=== PATIENT | female | born 1970 | race African-American/Black ===

== ENCOUNTER → 2019-04-06 | Outpatient (CLI) | payer BC ==
[~2019-04-06] MED LIST: ALBUTEROL INH INH; CLARITIN-D 121 EACH PO
== END ==
LOC: CAT 10:05
DX: K76.89 Other specified diseases of liver (principal); K76.0 Fatty (change of) liver, not elsewhere classified; Z90.49 Acquired absence of other specified parts of digestive tract; Z90.710 Acquired absence of both cervix and uterus; Z85.3 Personal history of malignant neoplasm of breast; Z90.11 Acquired absence of right breast and nipple

== ENCOUNTER → 2021-03-10 | Outpatient (CLI) | payer BC | LOC: ULTRA 09:41 → CAT 09:41 | PROVIDERS: ATTEND Nurse Practitioner | DX: R05 Cough (principal); R53.83 Other fatigue; R06.02 Shortness of breath; M25.78 Osteophyte, vertebrae ==

== ENCOUNTER → 2021-03-13 | Outpatient (CLI) | payer BC | LOC: RAD 12:27 | PROVIDERS: ATTEND Pediatrics | DX: R05 Cough (principal) ==